=== PATIENT | female | born 1975 | race Caucasian/White ===

== ENCOUNTER 2024-09-02 10:07 | Emergency (ER) | payer OTHER, SELFPAY ==
--- NOTE | 2024-09-02 10:15 | ED_ITS ---
HPI - URI/Sore Throat General Chief Complaint: Upper Respiratory Infection Stated Complaint: Body Aches/Cough Time Seen by Provider: 09/02/24 10:20 Source: patient, RN notes reviewed and old records reviewed Mode of arrival: ambulatory Limitations: no limitations History of Present Illness HPI Narrative: 49year old female who presents to [facility] with complaints of cough, body aches, sore throat, headache which started yesterday morning. Patient reports known exposure to strep from her son. Patient reports that her cough is productive of clear mucous.Patient reports general malaise with no known fevers, reports some right ear discomfort.Patient states that she has been taking NyQuil for her symptoms but doesn't like hot it makes her feel. MD elicited complaint: cough, sore throat and other (body aches, andheadache) Onset (ago): day(s) (2 of symptoms) Severity: moderate Description of mucous: clear Able to tolerate fluids by mouth: Yes Treatments prior to arrival: other (NyQuil) Related Data Allergies Allergy/AdvReac Type Severity Reaction Status Date / Time No Known Allergies Allergy Verified 09/02/24 10:22 Review of Systems Review of Systems: CONSTITUTIONAL: Reports malaise, no chills, sweats, or known fever. EYES: Denies visual changes, redness, or discharge. ENT: Reports rhinorrhea, congestion,no sinus pain, some right otalgia and positive for sore throat. CARDIOVASCULAR: Denies chest pain, palpitations, or edema. RESPIRATORY: Reports cough.? Denies dyspnea. GASTROINTESTINAL: Denies abdominal pain, nausea, vomiting, diarrhea SKIN: Denies rash or itching. MUSCULOSKELETAL: Reports myalgia. NEUROLOGIC: Reports headache. All systems reviewed & are unremarkable except as noted in HPI and below [facility] Past Medical History Medical History (Updated 09/02/24 @ 10:52 by Delmy Bernardo NP) Edentulous Tobacco abuse Surgical History Surgical History (Updated 09/02/24 @ 10:38 by Delmy Bernardo NP) Previous section Social History Social History (Updated 09/02/24 @ 10:51 by Delmy Bernardo NP) Smoking status: Current every day smoker Tobacco type: cigarettes and e-cigarettes/vaping Alcohol intake: unknown Substance use: unknown Living arrangements: with family Gender identity (if verbalized by the patient): Female Comments At time of signature, agree with nursing past medical, surgical, social and family history. There is no relevant family history pertinent to the presenting complaint Exam Narrative: GENERAL: Well-appearing, well-nourished, and in no acute distress. HEAD: Normocephalic EYES: PERRLA, conjunctivae clear ENT: Nares clear, turbinates edematous and erythematous, clear discharge. Mucous membranes moist. TM pearly lindsay with dull light reflex bilaterally; right tragal tenderness with some redness and irritation to ear canal. Oropharynx erythematous without lesions. Tonsils not enlarged and without exudate, no drooling, no hoarseness, no trismus, uvula midline. NECK: Supple. No lymphadenopathy CHEST: Clear to auscultation, breath sounds equal. No wheezing, rhonchi, rales, or stridor. No respiratory distress, speaks in full sentences.cough noted, SAO2 96% on room air HEART: Regular rate and rhythm. No murmur heard. SKIN: Warm, dry, no rash. NEURO: Alert and oriented x3. PSYCH: Normal mood and affect Course Course Emergency Course: Patient is aware of diagnosis, understands and agrees to treatment plan.? Anticipatory guidance given.? Patient agrees to follow-up as directed and is aware of reasons to seek care at the emergency department. Portions of this record may have been created with voice recognition software Level of Care: Express Care Visit Vital Signs Vital signs: Reviewed MDM - URI/Sore Throat MDM Narrative Medical decision making narrative: Differential diagnosis considered: Cummings virus, strep pharyngitis, allergic rhinitis, upper respiratory tract infection, sinusitis, rhinosinusitis, nasopharyngitis. viral pharyngitis, otitis media, otitis externa, pneumonia, bronchitis, viral cough syndrome, viral syndrome, and influenza.? Exam findings show no acute concerns or changes; patient is non-toxic appearing and is in no distress.? Patient is appropriate for outpatient treatment and follow-up. Differential Diagnosis Differential diagnosis: Likely upper respiratory infection, viral infection, influenza, pharyngitis and other (strep pharyngitis, COVID) Medical Records Attestation: I reviewed the patient's medical records. Lab Data Attestation: I reviewed the patient's lab results. Lab results narrative: strep screen negative, culture sent, Influenza A positive, Influenza B negative, COVID antigen negative Critical Care Time Critical Care Time Critical Care Time: No Discharge Plan Discharge Clinical Impression: Influenza, Otitis externa of right ear Patient Disposition: Home, Self-Care Condition: Stable Instructions: Antibiotic Form, Influenza (ED) Additional Instructions: Increase fluids especially juices and water [id number] cough and cold medicine of your choice for your symptoms Tylenol or Ibuprofen for any fever or pain OTC cough syrup such as Delsym or Robitussin Tamiflu per patient request heat to the face 20-30 minutes 4-6 times a day for pain Salt water gargles, throat lozenges or throat sprays as desired Ear drops as prescribed to the right ear If your symptoms persist, change or worsen significantly before you can contact your personal physician then please, without delay, go to the emergency department for further evaluation. Follow-up with PCP in 7-10 days or sooner if needed Follow up with PCP soon in regards to your blood pressure which is elevated above threshold for referral. Blood pressure above 120/80 may indicate pre- hypertension. 113/90 elevated diastolic pressure You must be fever free for 24 hours without use of Tylenol or ibuprofen before he can be out around others till then you must quarantine. Typically influenza lasts approximately 5 days from start of symptoms Patient Language: Irish Prescriptions: New ofloxacin 0.3 % drops 5 drp RIGHT EAR BID 7 Days Qty: 10 0RF oseltamivir [Tamiflu] 75 mg capsule 75 mg PO Q12H 5 Days Qty: 10 0RF Follow-up/Referrals: PHYSICIAN NOT ON STAFF,NONSTAFF [Primary Care Provider] - Time of Disposition: 10:47 Quality Gwyn Coma Scale Eyes: Open Verbal: Oriented and Alert Motor: Follows Commands Gwyn Coma Total Score: 15
--- OUTSIDE RECORDS SUMMARY | 2024-09-02 10:16 | XMS_ITS | Clinical Summary ---
Author Organization [facility] [employer] Address [address] [place] [address] Care Team Providers Care College Dean Name Role Phone Chinyere Madrid DO Primary Care Provider [phone] Source Comments [facility],non-owned Affiliates and Associated Physician Practices is amultiple site organization consisting of ambulatory clinics and hospital sitesin [place], [place], [place] and [place]. This disclosure is being madepursuant to the Care Everywhere program and may not contain all information available regarding this patient. Last updated 18.De Correspondent [facility] [employer] Allergies No known active allergies Medications * Be aware that medications may not be up to date on this document. Alwaysverify current medications with the patient. Medication Sig Dispensed Refills Start Date End Date Status mirtazapine (REMERON) 7.5 MG tablet Take 7.5 mg by mouth once daily 10/29/2020 Active amoxicillin (AMOXIL) 500 MG capsule 02/07/2021 Active Family History Medical History Relation Name Comments Lupus Daughter COPD - Chronic Obstructive Pulmonary Disease Mother Cancer - Ovarian Other Fam Hx Dementia Other Fam Hx Parkinson's Disease Other Fam Hx Arthritis - Rheumatoid Sister Relation Name Status Comments Daughter Mother Other Sister Social History Tobacco Use Types Packs/Day Years Used Date Smoking Tobacco: Some Days Smokeless Tobacco: Never Alcohol Use Standard Drinks/Week Comments Not Currently 0 (1 standard drink = 0.6 oz pur e alcohol) PHQ-2 Answer Date Recorded PHQ2 TOTAL SCORE 0 02/23/2021 Sex and Gender Information Value Date Recorded Sex Assigned at Not on file Gender Identity Not on file Sexual Orientation Not on file Last Filed Vital Signs Vital Sign Reading Time Taken Comments Blood Pressure 106/64 02/23/2021 11:21 AM CDT Pulse - - Temperature 36.5 C (97.7 F) 02/23/2021 11:21 AM CDT Respiratory Rate - - Oxygen Saturation - - Inhaled Oxygen Concentration - - Weight 61.1 kg (134 lb 9.6 oz) 02/23/2021 11:21 AM CDT Height 203.2 cm (6' 8 ) 02/23/2021 11:21 AM CDT Body Mass Index 14.79 02/23/2021 11:21 AM CDT Plan of Treatment Health Maintenance Due Date Last Done Comments COLOGUARD (AGES 45-75) - COL ON CA SCREENING 1973 COLON MONITORING 1973 COLONOSCOPY - COLON CA SCREENING 1973 CT COLONOGRAPHY - COLON CA SCREENING 1973 Colorectal Cancer Screening 1973 FIT - COLON CA SCREENING 1973 FLEX SIG - COLON CA SCREENING 1973 LIPID TESTING 1973 MAMMOGRAM 1973 PAP SMEAR 1973 HIV SCREENING 1988 HEPATITIS C SCREENING 08/17/1991 DTAP/TDAP/TD VACCINES (1 - Tdap) 1992 HEPATITIS B VACCINE (1 of 3 - 19+ 3-dose series) 1992 PNEUMOCOCCAL VACCINE (1 of 2 - PCV) 1992 PNEUMOCOCCAL VACCINE 50+ (1 of 1 - PCV) 08/22/2023 ZOSTER VACCINE (1 of 2) 08/22/2023 COVID-19 VACCINE (1 - 2023-2 5 season) 2024 INFLUENZA VACCINE (#1) 2024 DEPRESSION SCREENING 05/30/2024 HIB VACCINE Aged Out No longer eligi ble based on patient's age to complete this topic HPV VACCINE Aged Out No longer eligi ble based on patient's age to complete this topic MENINGOCOCCAL (Group B) VACC INE SHARED DECISION-MAKING Aged Out No longer eligibl e based on patient's age to complete this topic MENINGOCOCCAL GROUPS A/C/Y/W VACCINE Aged Out No longer eligible b ased on patient's age to complete this topic Care Teams College Dean Relationship Specialty Start Date End Date Chinyere Madrid DO [address] [place] [id number] PCP - General 11/10/20
--- OUTSIDE RECORDS SUMMARY | 2024-09-02 10:16 | XMS_ITS | Encounter Summary ---
Author Organization [facility] Address [address] [place] [address] Care Team Providers Care Transport Nurse Name Role Phone Chinyere Madrid DO Primary Care Provider [phone] Encounter Details Date Type Department Care Team (Late st Contact Info) Description 02/23/2024 Photocollect Message Enc [facility] Family Medicine - [place] [address], [address] [place] [phone] Chinyere Madrid DO [address] [place], [place] [phone] pap smear Social History Tobacco Use Types Packs/Day Years Used Date Smoking Tobacco: Every Day Smokeless Tobacco: Never Comments:given by physician Alcohol Use Standard Drinks/Week Comments Not Currently 0 (1 standard drink = 0.6 oz pur e alcohol) PHQ-2 Answer Date Recorded PHQ-2 Score - If the patient scores above 3, please move on to questions 3-9 4 10/29/2020 Comments No Sex and Gender Information Value Date Recorded Sex Assigned at Not on file Legal Sex Female 6:49 PM CDT Gender Identity Not on file Sexual Orientation Not on file documented as of this encounter Plan of Treatment Not on file documented as of this encounter Visit Diagnoses Not on filedocumented in this encounter Additional Health Concerns Assessment Noted Time PHQ-9 Depression Total Score: 13 021 11:58 AM CDT documented as of this encounter Care Teams Transport Nurse Relationship Specialty Start Date End Date Chinyere Madrid DO [address] [place] [address] PCP - General FAMILY PRACTICE 10/14/20 documented as of this encounter
--- OUTSIDE RECORDS SUMMARY | 2024-09-02 10:16 | XMS_ITS | Encounter Summary ---
Author Organization [facility] Address [address] [place] [address] Care Team Providers Care Visitor Services Representative Name Role Phone Chinyere Madrid DO Primary Care Provider [phone] Encounter Details Date Type Department Care Team (Late st Contact Info) Description 10/30/2020 Hoverink Message Enc [facility] Medical [facility] Family Medicine - [place] [address], [address] [place] [phone] [employer] (acquired by [employer]), [facility] Provider Lab results Social History Tobacco Use Types Packs/Day Years [...] on file Sexual Orientation Not on file COVID-19 Exposure Response Date Recorded In the last month, have you been in contact with someone who was confirmed or suspected to have Coronavirus / COVID-19? No / Unsure 10/30/2020 11:21 AM CDT documented as of this encounter Plan of Treatment Not on file documented as of this encounter Visit Diagnoses Not on filedocumented in this encounter Additional Health Concerns Assessment Noted Time PHQ-9 Depression Total Score: 13 021 11:58 AM CDT documented as of this encounter Care Teams Visitor Services Representative Relationship Specialty Start Date End Date Chinyere Madrid DO [address] [place], [place] [id number] PCP - General FAMILY PRACTICE 10/14/20 documented as of this encounter
--- OUTSIDE RECORDS SUMMARY | 2024-09-02 10:16 | XMS_ITS | Clinical Summary ---
Author Organization [facility] Address [address] [place] [address] Phone Care Team Providers Care Instrument Repair Supervisor Name Role Phone Wilfredo Alvarenga MD Primary Care Provider [phone] Social History Tobacco Use Types Packs/Day Years Used Date Smoking Tobacco: Never Assessed Comments Unknown Sex and Gender Information Value Date Recorded Sex Assigned at Not on file Legal Sex Female 3:52 AM SOLAR PROJECT COORDINATION SPECIALIST Gender Identity Not on file Sexual Orientation Not on file Plan of Treatment Health Maintenance Due Date Last Done Comments Hepatitis C Virus (HCV) Screening 1973 Mammogram 1973 TdaP Immunization 1973 Hepatitis B Immunization (1 of 3 - 19+ 3-dose series) 1992 Pap Smear 1994 Cervical Cancer Screening (CCS) 08/22/2003 HPV/Cotest 08/22/2003 Colonoscopy 2018 Colorectal Cancer Screening 2018 Cologuard 08/22/2023 Immunochemical Fecal Occult Blood 08/22/2023 Pneumococcal Immunization (5 0+ years) (1 of 1 - PCV) 08/22/2023 Zoster Immunization (1 of 2) 08/22/2023 Influenza Immunization (#1) 2024 SARS-COV-2 Immunization ( - season) 2024 Respiratory Syncytial Virus (RSV) Immunization (Adult) (1 - 1-dose 75+ series) 2048 Meningococcal Immunization (ACWY) Aged Out No longer eligible based on patient's age to complete this topic Pneumococcal Immunization Combined Aged Out No longer eligible based on patient's age to complete this topic Rotavirus Immunization Aged Out No lo nger eligible based on patient's age to complete this topic Insurance MEDICAID [employer] Care Teams Instrument Repair Supervisor Relationship Specialty Start Date End Date Wilfredo Alvarenga MD [address] [place] [address] [place] [address] PCP - General Family Medicine 07/29/23
--- OUTSIDE RECORDS SUMMARY | 2024-09-02 10:16 | XMS_ITS | Encounter Summary ---
Author Organization [facility] Address [address] [place] [address] Care Team Providers Care Dip Unit Operator Name Role Phone Bora Lee DO Primary Care Provider Chinyere Marroquin DO Primary Care Provider [phone] Encounter Details Date Type Department Care Team (Late st Contact Info) Description 04/02/2017 [place] [address] , Generic ConversionMD Social History Tobacco Use Types Packs/Day Years [...] Diagnoses Not on filedocumented in this encounter Care Teams Dip Unit Operator Relationship Specialty Start Date End Date Bora Lee DO PCP - General 03/05/15 10/13/20 Chinyere Madrid DO [facility] [place], [place] [id number] PCP - General FAMILY PRACTICE 10/14/20 documented as of this encounter
--- OUTSIDE RECORDS SUMMARY | 2024-09-02 10:16 | XMS_ITS | Clinical Summary ---
Author Organization [facility] Address [address] [place] [address] Care Team Providers Care Surveillance Systems Analyst Name Role Phone Chinyere Madrid DO Primary Care Provider [phone] Allergies No known active allergies Medications PANTOPRAZOLE EC 20 MG tabletIndicatio ns:Flank pain,Epigastric pain TAKE 1 TABLET(20 MG) BY MOUTH DAILY 90 tablet 10/15/2020 Active mirtazapine 7.5 MG Tab tabletIndicatio ns:Primary insomnia Take 1 tablet (7.5 mg total) by mouth nightly at bedtime. 14 tablet 10/29/2020 Active mirtazapine 7.5 MG Tab tabletIndicatio ns:Primary insomnia 1/2 tablet bid 30 tablet 2 02/06/2021 Active multi vitamin/mineral s tabletIndicatio ns:Alcohol abuse Take 1 tablet by mouth daily. 90 tablet 3 02/06/2021 Active Active Problems Problem Noted Date Diagnosed Date Epigastric pain 10/15/2020 Family history of lupus erythematosus 10/15/2020 Alcohol abuse 10/15/2020 Heavy tobacco smoker 10/15/2020 Family history of ovarian cancer 10/15/2020 Family History Medical History Relation Comments Heart Disease Daughter Lupus Daughter Seizures Daughter COPD Mother Cancer Mother Cancer Sister Lupus Sister Relation Status Comments Daughter Mother Sister Social History Tobacco Use Types Packs/Day Years Used Date Smoking Tobacco: Every Day Smokeless Tobacco: Never Tobacco Cessation:Ready to Q uit: Yes; Counseling Given: Yes Comments:given by physician Alcohol Use Standard Drinks/Week [...] Sign Reading Time Taken Comments Blood Pressure 102/64 10/29/2020 11:23 AM CDT Pulse 74 10/29/2020 11:23 AM CDT Temperature 36.1 C (97 F) 10/29/2020 11:23 AM CDT Respiratory Rate 16 10/29/2020 11:23 AM CDT Oxygen Saturation 97% 10/29/2020 11:23 AM CDT Inhaled Oxygen Concentration - - Weight 58.2 kg (128 lb 6.4 oz) 10/29/2020 11:23 AM CDT Height 152.4 cm (5') 10/29/2020 11:23 AM CDT Body Mass Index 25.08 10/29/2020 11:23 AM CDT Plan of Treatment Health Maintenance Due Date Last Done Comments Cervical Cancer Screening Pa p Smear (Age 30 to 64) Every 3 Years 1973 Colorectal Cancer Screening Colonoscopy (10 Years) 1973 Annual Physical 1976 Pneumococcal Vaccine: Pediat rics (0 to 5 Years) and At-Risk Patients (6 to 64 Years) (1 of 2 - PCV) 08/22/1979 DTaP, Tdap and Td Vaccines ( 1 - Tdap) 1992 Hepatitis B Vaccines (1 of 3 - 19+ 3-dose series) 1992 Cervical Cancer Screening Pa p with HPV Testing (Age 30 to 64) Every 5 Years 08/22/2003 Cervical Cancer Screening with HPV 08/22/2003 Mammogram Screening 2013 Zoster Vaccines (1 of 2) 08/22/2023 COVID-19 Vaccine (2023-2 5 season) 2024 PHQ-2 (Physician [place]) 05/30/2024 Hepatitis C Completed 10/14/2020 Meningococcal B Vaccine Aged Out No l onger eligible based on patient's age to complete this topic Meningococcal Vaccine Aged Out No nicolás lexie eligible based on patient's age to complete this topic RSV Immunizations Under 20 Months Aged Out No longer eligible based on patient's age to complete this topic Procedures Procedure Name Priority Date/Time Associated Diagnosis Comments HEPATITIS C ANTIBODY Routine 10/14/2020 12:16 PM CDT Need for hepatitis C screening test from Last 3 Months or Most Recently Relevant to Health Maintenance Results * HEPATITIS C ANTIBODY (10/14/2020 12:16 PM CDT) HEPATITIS C AB NON-REACTI VE NON-REACTI VE 10/14/2020 1:52 PM CDT [facility] 10/14/2020 12:1 6 PM CDT us Chinyere Mercy DO LABORATORY Final Result [facility] [address] [place] [address], from Last 3 Months or Most Recently Relevant to Health Maintenance Insurance MEDICARE PART A MEDICAID Care Teams Surveillance Systems Analyst Relationship Specialty Start Date End Date Chinyere Madrid DO [address] [place] [id number] PCP - General FAMILY PRACTICE 10/14/20
--- OUTSIDE RECORDS SUMMARY | 2024-09-02 10:16 | XMS_ITS | Encounter Summary ---
Author Organization [facility] Address [address] [place] [address] Care Team Providers Care Stacker Tender Name Role Phone Chinyere Madrid DO Primary Care Provider [phone] Encounter Details Date Type Department Care Team (Late st Contact Info) Description 10/16/2020 Superbact Message Enc [facility] Medical Group Family Medicine - [place] [address] [place] [phone] [place] [address] [place] [address] urine Social History Tobacco Use Types Packs/Day Years Used Date Smoking Tobacco: Every Day Smokeless Tobacco: Never Comments:given by physician Alcohol Use Standard Drinks/Week Comments Not Currently 0 (1 standard drink = 0.6 oz pur e alcohol) PHQ-2 Answer Date Recorded PHQ-2 Score - If the patient scores above 3, please move on to questions 3-9 2 10/14/2020 Comments No Sex and Gender Information Value Date Recorded Sex Assigned at Not on file Legal Sex Female 6:49 PM CDT Gender Identity Not on file Sexual Orientation Not on file COVID-19 Exposure Response Date Recorded In the last month, have you been in contact with someone who was confirmed or suspected to have Coronavirus / COVID-19? No / Unsure 10/14/2020 9:52 AM CDT documented as of this encounter Plan of Treatment Not on file documented as of this encounter Visit Diagnoses Not on filedocumented in this encounter Additional Health Concerns Assessment Noted Time PHQ-9 Depression Total Score: 18 021 11:24 AM CDT documented as of this encounter Care Teams Stacker Tender Relationship Specialty Start Date End Date Chinyere Madrid DO [address] [place] [address] PCP - General FAMILY PRACTICE 10/14/20 documented as of this encounter
[2024-09-02 10:17] VITALS: BP 113/90; PULSE 107; RESP 20; TEMP 37.3; O2SAT 96
[2024-09-02 10:39] LABS: EDCOVIDSCREEN Negative (Negative); EDINFLUASCREEN Positive (Negative); EDINFLUBSCREEN Negative (Negative); EDSTREPNEGPOS1 Negative (Negative)
== END 2024-09-02 10:52 | disposition home or self-care (01) ==
PROVIDERS: Emergency Provider Registered Nurse
DX: J10.1 Influenza due to other identified influenza virus with other respiratory manifestations (principal); H60.91 Unspecified otitis externa, right ear; Z20.822 Contact with and (suspected) exposure to COVID-19; F17.210 Nicotine dependence, cigarettes, uncomplicated; F17.290 Nicotine dependence, other tobacco product, uncomplicated
CPT/HCPCS: 87081; 87426; 87804; 87880; 99203; G0463

== ENCOUNTER 2025-05-02 17:35 | Emergency (ER) | payer OTHER, SELFPAY ==
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
[2025-05-02 17:55] VITALS: BP 152/92; PULSE 65; RESP 18; TEMP 36.7; O2SAT 100
[2025-05-02 21:45] VITALS: BP 134/82; PULSE 67; RESP 20; O2SAT 98
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
[2025-05-02] MEDS: IBUPROFEN 400 MG TABLET 800 MG PO (23:04)
[2025-05-02] MEDS: LIDOCAINE 5% PATCH 1 PATCH TRANSDERM (23:05)
[2025-05-02 23:08] VITALS: BP 137/82; PULSE 63; RESP 18; O2SAT 99
--- OUTSIDE RECORDS SUMMARY | 2025-05-02 23:10 | XMS_ITS | Encounter Summary ---
Author Organization [facility] Address [address] [place] [address] Care Team Providers Care Stucco Mason Name Role Phone Chinyere Madrid DO Primary Care Provider [phone] Encounter Details Date Type Department Care Team (Late st Contact Info) Description 09/20/[address] [facility] Family Medicine - [place] [address], [address] [place] [id number] Chinyere Madrid DO [address] [place], [place] [id number] mammogram Social History Tobacco Use Types Packs/Day Years [...] documented as of this encounter Care Teams Stucco Mason Relationship Specialty Start Date End Date Chinyere Madrid DO [address] [place] [address] PCP - General FAMILY PRACTICE 10/14/20 documented as of this encounter
--- OUTSIDE RECORDS SUMMARY | 2025-05-02 23:10 | XMS_ITS | Encounter Summary ---
Author Organization [facility] Address [address] [place] [address] Care Team Providers Care Beauty Specialist Name Role Phone Bora Lee DO Primary Care Provider Chinyere Marroquin DO Primary Care Provider [phone] Encounter Details Date Type Department Care Team (Late st Contact Info) Description 04/02/2017 [place] [address] , Generic ConversionMD Social History [...] on filedocumented in this encounter Care Teams Beauty Specialist Relationship Specialty Start Date End Date Bora Lee DO PCP - General 03/05/15 10/13/20 Chinyere Madrid DO [facility] [place], [place] [id number] PCP - General FAMILY PRACTICE 10/14/20 documented as of this encounter
--- OUTSIDE RECORDS SUMMARY | 2025-05-02 23:10 | XMS_ITS | Clinical Summary ---
Author Organization [facility] Address [address] [place] [address] Phone Care Team Providers Care Hospice Home Care Coordinator Name Role Phone Wilfredo Alvarenga MD Primary Care Provider [phone] Medications hydrOXYzine (VISTARIL) 50 MG Capsule Take 50 mg by mouth 3 times daily as needed. Active Active Problems Problem Noted Date Diagnosed Date Adjustment disorder with anxious mood 12/18/2024 Family History Medical History Relation Name Comments Depression Maternal Aunt Bipolar Disorder Sister Attention Deficit Hyperactivity Disorder Son Relation Name Status Comments Maternal Aunt Sister Son Other Social History Tobacco Use Types Packs/Day Years Used Date Smoking Tobacco: Every Day Cigarettes Passive Smoke Exposure: Past Smokeless Tobacco: Current Tobacco Cessation:Ready to Q uit: Not Asked; Counseling Given: No Alcohol Use Standard Drinks/Week Comments Yes 0 (1 standard drink = 0.6 oz pur e alcohol) 2-3 beers once a week PHQ-2 Answer Date Recorded Total Score - Questions 1-9 5 11/28 Sexually Active Control Partners Comments Yes Male Comments Unknown Sex and Gender Information Value Date Recorded Sex Assigned at Not on file 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 Gender Identity Not on file Sexual Orientation Not on file Plan of Treatment Health Maintenance Due Date Last Done Comments Mammogram 1973 TdaP Immunization 1973 Hepatitis B Immunization (1 of 3 - 19+ 3-dose series) 1992 Pneumococcal Immunization (5 0+ years) (1 of 2 - PCV) 1992 Pap Smear 1994 Cervical Cancer Screening (CCS) 08/22/2003 HPV/Cotest 08/22/2003 Cologuard 2018 Colonoscopy 2018 Colorectal Cancer Screening 2018 Immunochemical Fecal Occult Blood 2018 Zoster Immunization (1 of 2) 08/22/2023 Influenza Immunization (#1) 2025 SARS-COV-2 Immunization ( - season) 2025 Respiratory Syncytial Virus (RSV) Immunization (Adult) (1 - 1-dose 75+ series) 2048 Hepatitis C Virus (HCV) Screening Completed 021 Human Papillomavirus (HPV) Immunization Aged Out No longer eligible b ased on patient's age to complete this topic Meningococcal Immunization (ACWY) Aged Out No longer eligible based on patient's age to complete this topic Rotavirus Immunization Aged Out No lo nger eligible based on patient's age to complete this topic Goals Goal Patient Goal Type Associated Problems Recent Progress Patient-Stated? Author Behavioral Health Behavioral Health Yes Jimmy Zhao, ACCOUNTS RECEIVABLE ASSISTANT Note: I have been depressed lately, coping skills for my stressors Insurance MEDICAID [facility] Care Teams Hospice Home Care Coordinator Relationship Specialty Start Date End Date Wilfredo Alvarenga MD [address] [place] [address] DR ALEMAN [address] [place] [address] PCP - General Family Medicine 07/29/23
--- OUTSIDE RECORDS SUMMARY | 2025-05-02 23:10 | XMS_ITS | Encounter Summary ---
Author Organization [facility] Address [address] [place] [address] Care Team Providers Care Hat Blocking Machine Operator Name Role Phone Chinyere Madrid DO Primary Care Provider [phone] Encounter Details Date Type Department Care Team (Late st Contact Info) Description 10/30/2020 [employer] Message Enc [facility] Family Medicine - [place] [address], [address] [place] [phone] Khush, [facility] Provider Lab results Social History Tobacco Use [...] documented as of this encounter Care Teams Hat Blocking Machine Operator Relationship Specialty Start Date End Date Chinyere Madrid DO [address] [place], [place] [phone] PCP - General FAMILY PRACTICE 10/14/20 documented as of this encounter
--- OUTSIDE RECORDS SUMMARY | 2025-05-02 23:10 | XMS_ITS | Clinical Summary ---
Author Organization [facility] Address [address] [place] [id number] Care Team Providers Care Minute Clerk For Basic Traffic Name Role Phone Chinyere Madrid DO Primary Care Provider [phone] Allergies No known active allergies Medications PANTOPRAZOLE [...] Colonoscopy (10 Years) 1973 Annual Physical 1976 DTaP, Tdap and Td Vaccines ( 1 - Tdap) 1992 Hepatitis B Vaccines (1 of 3 - 19+ 3-dose series) 1992 Pneumococcal Vaccine: 50+ Ye ars (1 of 2 - PCV) 1992 Cervical Cancer Screening Pa p with HPV Testing (Age 30 to 64) Every 5 Years 08/22/2003 Cervical Cancer Screening with HPV 08/22/2003 Mammogram Screening 2013 Zoster Vaccines (1 of 2) 08/22/2023 PHQ-2 (Physician [place]) 05/30/2024 COVID-19 Vaccine ( - 2024-2 6 season) 2025 Influenza Adult (#1) 2025 Hepatitis C Completed 10/14/2020 Hepatitis A Vaccines Aged Out No long er eligible based on patient's age to complete this topic Meningococcal B Vaccine Aged Out No l [...] VE NON-REACTI VE 10/14/2020 1:52 PM CDT [facility] 10/14/2020 12:1 6 PM CDT us Chinyere Mercy DO LABORATORY Final Result [facility] [address] [place] [address], from Last 3 Months or Most Recently Relevant to Health Maintenance Insurance MEDICARE PART A MEDICAID Care Teams Minute Clerk For Basic Traffic Relationship Specialty Start Date End Date Chinyere Madrid DO [address] [place] [id number] PCP - General FAMILY PRACTICE 10/14/20
--- OUTSIDE RECORDS SUMMARY | 2025-05-02 23:10 | XMS_ITS | Encounter Summary ---
Author Organization [facility] Address [address] [place] [address] Care Team Providers Care Network Technology Instructor Name Role Phone Chinyere Madrid DO Primary Care Provider [phone] Encounter Details Date Type Department Care Team (Late st Contact Info) Description 10/16/2020 [employer] Message Enc [facility] Family Medicine - [place] [address], [address] [place] [phone] [place] [address] [place] [address] urine Social History Tobacco Use Types Packs/Day [...] documented as of this encounter Care Teams Network Technology Instructor Relationship Specialty Start Date End Date Chinyere Madrid DO [address] [place] [address] PCP - General FAMILY PRACTICE 10/14/20 documented as of this encounter
--- OUTSIDE RECORDS SUMMARY | 2025-05-02 23:10 | XMS_ITS | Encounter Summary ---
Author Organization [facility] Address [address] [place] [address] Care Team Providers Care Battery Engineer Name Role Phone Chinyere Madrid DO Primary Care Provider [phone] Encounter Details Date Type Department Care Team (Late st Contact Info) Description 02/23/2024 [employer] Message Enc [facility] Family Medicine - [place] [address] [facility], [address] [place] [phone] Chinyere Madrid DO [address] [place], [place] [phone] pap smear Social History Tobacco Use Types [...] documented as of this encounter Care Teams Battery Engineer Relationship Specialty Start Date End Date Chinyere Madrid DO [address] [place] [address] PCP - General FAMILY PRACTICE 10/14/20 documented as of this encounter
== END 2025-05-02 23:07 | disposition home or self-care (01) ==
LOC: ANHED 23:08
PROVIDERS: Emergency Provider Registered Nurse
DX: S46.911A Strain of unspecified muscle, fascia and tendon at shoulder and upper arm level, right arm, initial encounter (principal); F17.210 Nicotine dependence, cigarettes, uncomplicated; F17.290 Nicotine dependence, other tobacco product, uncomplicated; V49.40XA Driver injured in collision with unspecified motor vehicles in traffic accident, initial encounter
CPT/HCPCS: 73030; 99283; A9270